=== PATIENT | female | born 2000 | race Caucasian/White ===

== ENCOUNTER 2023-02-03 13:49 | Outpatient (CLI) | payer OTHER, SELFPAY ==
[2023-02-03 19:12] LABS: Alanine Aminotransferase 32 U/L (6-35); Albumin Level 4.6 g/dL (3.5-5.1); Alkaline Phosphatase 61 U/L (38-126); Anion Gap 7 mmol/L (8-16); Aspartate Amino Transferase 37 U/L (14-36); Bilirubin,Total 0.6 mg/dL (0.2-1.3); Blood Urea Nitrogen 12 mg/dL (7-17); Calcium 9.5 mg/dL (8.4-10.2); Carbon Dioxide 28 mmol/L (22-30); Chloride 105 mmol/L (98-107); Cholesterol 148 mg/dL (0-200); Estimated Glomerular Filt Rate > 60; Glucose 77 mg/dL (65-110); HDL Direct 50 mg/dL; Potassium 4.3 mmol/L (3.4-5.0); Sodium 140 mmol/L (137-145); Triglycerides 81 mg/dL (<150)
[2023-02-03 19:23] LABS: Basophils Absolute Auto 0.1 K/mm3 (0.0-0.1); Basophils Percent Auto 0.7 % (0.2-1.2); Eosinophils Absolute Auto 0.2 K/mm3 (0-0.3); Eosinophils Percent Auto 2.3 % (0-4.4); Hematocrit 41.3 % (37.0-47.0); Hemoglobin 13.7 g/dL (12.0-15.0); Immature Granulocyte Absolute 0.01 K/mm3 (0.00-0.031); Immature Granulocyte Percent A 0.1 % (0-0.5); LDL Cholesterol Direct 80 mg/dL; Lymphocytes Absolute Auto 2.85 K/mm3 (0.9-3.2); Lymphocytes Percent Auto 41.3 % (18.3-44.2); Mean Corpuscular HGB Conc 33.2 g/dl (32-36); Mean Corpuscular Hemoglobin 30.2 pg (26-34); Mean Platelet Volume 9.6 fl (7.4-10.4); Monocytes Absolute Auto 0.5 K/mm3 (0.1-0.6); Monocytes Percent Auto 7.2 % (2.6-8.5); Neutrophils Absolute Auto 3.3 K/mm3 (1.3-6.7); Neutrophils Percent Auto 48.4 % (45.5-73.1); Platelet Count Result 367 k/mm3 (150-375); Red Blood Count 4.54 M/mm3 (4.2-5.4); Red Cell Distribution Width 12.6 % (11.5-14.5); White Blood Count 6.9 K/mm3 (4.5-10.0)
[2023-02-03 19:41] LABS: Thyroid Stimulating Hormone 0.849 uIU/mL (0.465-4.680)
== END 2023-02-03 13:50 | disposition home or self-care (01) ==
LOC: ANHGOSHLAB 13:51
PROVIDERS: PCP Internal Medicine; Visit Provider Nurse Practitioner
DX: R14.0 Abdominal distension (gaseous) (principal); Z13.220 Encounter for screening for lipoid disorders
CPT/HCPCS: 36415; 80053; 80061; 84443; 85025

== ENCOUNTER 2023-02-17 13:19 | Outpatient (CLI) | payer OTHER, SELFPAY ==
[2023-02-23 09:16] LABS: Immunoglobulin A 170 mg/dL (47-310); TTG IGA AB <1.0 U/mL (<15.0)
== END 2023-02-17 13:20 | disposition home or self-care (01) ==
LOC: ANHGOSHLAB 13:20
PROVIDERS: PCP Internal Medicine; Visit Provider Nurse Practitioner
DX: R14.0 Abdominal distension (gaseous) (principal)
CPT/HCPCS: 36415; 82784; 86364

== ENCOUNTER 2023-02-23 05:56 | Observation (INO) | payer OTHER, SELFPAY ==
[2023-02-23] VITALS (14 sets, daily range): BP systolic 119–161; BP diastolic 72–97; PULSE 72–120; RESP 11–18; TEMP 35.9–38.4; O2SAT 94–100; BMI 24.7
--- NOTE | ~2023-02-23 | CT_ITS ---
CT of the Abdomen and Pelvis: Indication: Abdominal pain Technique: 2.5 mm axial scans were obtained through the abdomen and pelvis following intravenous adm inistration of 100 cc of Omnipaque 350. Dose reduction technique was used on this scan by utilizing a utomated exposure control and iterative reconstruction technique. The dose-length product (DLP) was 2 77.49 mGy-cm. Findings: Scans through the lung bases are unremarkable. The liver, spleen, pancreas, gallbladder, adrenals and kidneys are within normal limits. No evidence of aortic aneurysm. No lymphadenopathy. No bowel obstruction or bowel wall thickening. Appendix is 8 mm in diameter with probable minimal per iappendiceal stranding.. Images through the pelvis were performed. Urinary bladder unremarkable. No adnexal mass seen. No asci emelyn. Impression: Findings which could reflect early acute appendicitis in the appropriate clinical setting. Correlate clinically. No abscess or free. Reviewed, dictated and finalized at [facility]. Impression: Findings which could reflect early acute appendicitis in the appropriate clinic al setting. Correlate clinically. No abscess or free.
--- NOTE | 2023-02-23 06:00 | ED.ABDPAIN ---
HPI - Abdominal Pain General Chief Complaint: Abdominal Pain <Penny Zimmerman MD - Last Filed: 02/23/23 07:20> Stated Complaint: abdominal pain <Penny Zimmerman MD - Last Filed: 02/23/23 07:20> Time Seen by Provider: 02/23/23 06:00 <Penny Zimmerman MD - Last Filed: 02/23/23 07:20> Source: patient <Penny Zimmerman MD - Last Filed: 02/23/23 07:20> Mode of arrival: ambulatory <Penny Zimmerman MD - Last Filed: 02/23/23 07:20> Limitations: no limitations <Penny Zimmerman MD - Last Filed: 02/23/23 07:20> History of Present Illness HPI narrative: Patient is a 22-year-old female with a history of asthma presenting to the emergency department for evaluation of abdominal pain. Patient reports abdominal pain that awaken her from sleep around 1 in the morning. Patient reports aching pressure in the lower abdomen greatest in the right lower quadrant. Patient denies fever, chills, nausea or vomiting. She denies flank pain. No dysuria, hematuria, vaginal bleeding or discharge. No radiation of pain to the flanks. Patient denies any abdominal distention. She reports mild constipation, last bowel movement 2 days ago. Last oral intake was 3:30 AM this morning, patient reports that she ate a banana. This did not exacerbate symptoms. She has not taken any medication to help with pain. She denies history of pain such as this in the past. <Penny Zimmerman MD - Last Filed: 02/23/23 07:20> Related Data Home Medications: Home Medications Medication Instructions Recorded Confirmed norgestrel 0.3 mg-ethinyl 1 tablet PO DAILY 02/03/23 02/03/23 estradiol 30 mcg tablet (Low-Ogestrel (28)) <Penny Zimmerman MD - Last Filed: 02/23/23 07:20> Allergies/Adverse Reactions: Allergies Allergy/AdvReac Type Severity Reaction Status Date / Time amoxicillin [From Augmentin] Allergy Unknown Unknown Verified 02/03/23 13:03 clavulanic acid Allergy Unknown Unknown Verified 02/03/23 13:03 [From Augmentin] <Penny Zimmerman MD - Last Filed: 02/23/23 07:20> Review of Systems Review of Systems: CONSTITUTIONAL: Denies fever, chills, or sweats. EYES: Denies visual changes, redness, or discharge. ENT: Denies rhinorrhea, congestion, sore throat, or otalgia. CARDIOVASCULAR: Denies chest pain, palpitations, or edema. RESPIRATORY: Denies cough or dyspnea. GASTROINTESTINAL: Reports lower abdominal pain without nausea, vomiting, or diarrhea. GENITOURINARY: Denies dysuria or hematuria. SKIN: Denies rash or itching. MUSCULOSKELETAL: Denies back pain, joint pain, or myalgia. NEUROLOGIC: Denies headache, numbness, or weakness. <Penny Zimmerman MD - Last Filed: 02/23/23 07:20> [facility] Past Medical History Medical History: Medical History Asthma <Penny Zimmerman MD - Last Filed: 02/23/23 07:20> Family History Family History: Family History (Updated 02/03/23 @ 13:06 by Gwen Lantigua [facility]) Father Alcoholism Hypertension Grandparent Thyroid disorder <Penny Zimmerman MD - Last Filed: 02/23/23 07:20> Social History Social History: Social History Smoking status: Never smoker Alcohol intake: never Substance use type: does not use Lack of Transportation: No Lack of Food: Never True Current Housing: I Have Housing Concerned About Future Housing: No Difficulty Paying Gas/Electric Bills: No Difficulty Paying for Meds: No Currently Unemployed: No Education: Bachelor's Degree Difficulty w/ Childcare or Family Care: No <Penny Zimmerman MD - Last Filed: 02/23/23 07:20> Exam Narrative: GENERAL: Awake, alert, conversant HEAD: Normocephalic, atraumatic. EYES: PERRLA and EOMI. ENT: Nares clear, no rhinorrhea or epistaxis. Mucous membranes moist. NECK: Supple. CHEST: No respiratory distress, breathing even and non labored
[2023-02-23 06:16] LABS: Basophils Absolute Auto 0.1 K/mm3 (0.0-0.1); Basophils Percent Auto 0.3 % (0.2-1.2); Eosinophils Absolute Auto 0.3 K/mm3 (0-0.3); Eosinophils Percent Auto 1.3 % (0-4.4); Hematocrit 40.6 % (37.0-47.0); Hemoglobin 13.8 g/dL (12.0-15.0); Immature Granulocyte Absolute 0.06 K/mm3 (0.00-0.031); Immature Granulocyte Percent A 0.3 % (0-0.5); Lymphocytes Absolute Auto 3.85 K/mm3 (0.9-3.2); Lymphocytes Percent Auto 20.7 % (18.3-44.2); Mean Corpuscular Hemoglobin 30.7 pg (26-34); Mean Corpuscular Volume 90.4 fl (80-100); Mean Platelet Volume 8.9 fl (7.4-10.4); Monocytes Percent Auto 5.3 % (2.6-8.5); Neutrophils Absolute Auto 13.4 K/mm3 (1.3-6.7); Neutrophils Percent Auto 72.1 % (45.5-73.1); Platelet Count Result 326 k/mm3 (150-375); Red Blood Count 4.49 M/mm3 (4.2-5.4); Red Cell Distribution Width 12.7 % (11.5-14.5); White Blood Count 18.6 K/mm3 (4.5-10.0)
[2023-02-23] MEDS: SODIUM CHLORIDE 0.9% IV 1,000 ML 999 ML IV CONT (06:22)
[2023-02-23 06:26] LABS: Alanine Aminotransferase 31 U/L (6-35); Albumin Level 4.4 g/dL (3.5-5.1); Alkaline Phosphatase 62 U/L (38-126); Anion Gap 8 mmol/L (8-16); Aspartate Amino Transferase 35 U/L (14-36); Bilirubin,Total 0.4 mg/dL (0.2-1.3); Blood Urea Nitrogen 10 mg/dL (7-17); Carbon Dioxide 22 mmol/L (22-30); Chloride 108 mmol/L (98-107); Estimated CRCL calculation 113 ml/min; Estimated Glomerular Filt Rate > 60; Glucose 93 mg/dL (65-110); Lipase 116 U/L (23-300); Sodium 138 mmol/L (137-145)
[2023-02-23 06:29] LABS: Appearance Urine Clear (Clear); Bilirubin Urine Negative (Negative); Blood Urine Negative (Negative); Color Urine Yellow (Yellow); Glucose Urine UA Negative (Negative); Ketones Urine Negative (Negative); Leukocyte Esterase Ur Negative LEU/UL (Negative); Nitrate Urine Negative (Negative); Protein Urine Negative (Negative); Specific Grav Ur 1.012 (1.001-1.035); Urobilinogen Urine 0.2 mg/dL (<2.0)
[2023-02-23 06:39] LABS: Add Urine Microscopic? NO
[2023-02-23] MEDS: PIPERACILLN/TAZ 3.375GM/NS50ML 3.375 GM/50 ML BAG IVPB ×2 (07:54→12:47)
--- NOTE | 2023-02-23 09:00 | ADMGEN ---
This patient, Herlinda Lew, was admitted to [facility] Surg Room 321-01. Patient/family oriented to hospital policies and general routines including ID bracelet, bed and alarms, visiting hours, pain management, procedures, bathroom and other care routines, personal items, smoking policy, room service/diet, and visiting hours. Information on how to activate the Rapid Response Team has been discussed. Patient/Family are encouraged to report perceived risks to care and to ask questions if they do not understand what they are told or what they should do.
[2023-02-23] MEDS: SODIUM CHLORIDE 0.9% IV 1,000 ML 125 ML IV CONT (10:55)
--- NOTE | 2023-02-23 11:36 | PM.IMHP ---
H&P: HPI History of Present Illness Date/Time: 02/23/23 11:36 Chief Complaint: Right lower quadrant abdominal pain. Narrative: Patient is a 22-year-old female who was otherwise healthy. She presented to the emergency room with a 6 to 8 hour history of sudden onset of lower abdominal pain which has localized right lower quadrant the abdomen. No nausea or vomiting. No diarrhea. Workup in the emergency room showed elevated white blood cell count [id number]. She has point tenderness the right lower quadrant the abdomen consistent with acute appendicitis clinically. CT scan abdomen pelvis was performed showing an 8mm dilated appendix with some subtle periappendiceal inflammation suggestive of early acute appendicitis. No abscess or perforation was noted. Review of Systems Review of Systems: The remainder of the review of systems to include constitutional, HEENT, cardiovascular, respiratory, GI, , integumentary, musculoskeletal, endocrine, immunologic, hematologic, psychiatric, and neurologic are all negative except for which is mentioned above in the HPI. [facility] Past Medical History Medical History Asthma Family History Family History Father Alcoholism Hypertension Grandparent Thyroid disorder Social History Social History Smoking status: Never smoker Alcohol intake: never Substance use type: does not use Lack of Transportation: No Lack of Food: Never True Current Housing: I Have Housing Concerned About Future Housing: No Difficulty Paying Gas/Electric Bills: No Difficulty Paying for Meds: No Currently Unemployed: No Education: Bachelor's Degree Difficulty w/ Childcare or Family Care: No Meds Home Medications and Allergies Home Medications Medication Instructions Recorded Confirmed Type norgestrel 0.3 mg-ethinyl 1 tablet PO DAILY 02/03/23 02/03/23 History estradiol 30 mcg tablet (Low-Ogestrel (28)) Allergies Allergy/AdvReac Type Severity Reaction Status Date / Time amoxicillin [From Augmentin] Allergy Unknown Unknown Verified 02/03/23 13:03 clavulanic acid Allergy Unknown Unknown Verified 02/03/23 13:03 [From Augmentin] Vital Signs Vital Signs - 24 hr 02/23/23 06:00 02/23/23 07:54 02/23/23 09:50 Temperature 36.9 C 37.1 C 36.1 C L Pulse Rate 86 80 72 Respiratory Rate 16 18 18 Blood Pressure 145/88 H 129/76 133/75 Pulse Oximetry 100 100 100 Oxygen Delivery Room Air Exam Const: General: comfortable and no acute distress HENMT: Face/Nose/Sinus: Normal nares present Mouth: Yes moist mucous membranes Eyes: General: appearance normal, both eyes and all related structures Sclera: sclerae normal Pupils: Equal, round and reactive pupils present Neck: Neck: supple and no JVD Resp: Effort & Inspection: normal respiratory effort Auscultation: clear to auscultation bilaterally Cardio: Rate: regular rate Rhythm: regular rhythm GI: Other: Abdomen soft and nondistended. No surgical scars. No ventral hernias. Mild point tenderness over McBurney's point the right lower quadrant was some mild guarding but no generalized rebound tenderness. No masses are appreciated. Neuro: Speech: normal speech Motor exam (neuro): 5/5 motor strength present throughout Sensory Exam: normal sensation Extrem: General: normal to inspection Psych: Mental Status: mental status grossly normal Affect: normal affect H&P: Results Labs Labs: Short CBC 02/23/23 Range/Units 06:09 WBC 18.6 H (4.5-10.0) K/mm3 Hgb 13.8 (12.0-15.0) g/dL Hct 40.6 (37.0-47.0) % Plt Count 326 (150-375) k/mm3 BMP 02/23/23 06:09 Sodium 138 Potassium 4.0 Chloride 108 H Carbon Dioxide 22 BUN 10 Creatinine 0.60 L Glucose 93 Calcium 9.0 Liver Function 02/23/23 Range/Units 06:09
[2023-02-23] MEDS: ACETAMINOPHEN 500 MG TABLET 1000 MG PO (11:50)
--- NOTE | 2023-02-23 11:55 | WPDHPUPDATE1 ---
History and Physical Update Update Date/Time: 02/23/23 11:55 History and Physical has been reviewed, including an updated exam of the patient. There are NO changes in the patient's condition. Risks, benefits, and alternatives have been discussed and questions answered. Patient agrees to proceed with procedure.
[2023-02-23] MEDS: LACTATED RINGERS 1,000 ML 30 ML IV CONT ×2 (14:20→16:46)
--- NOTE | 2023-02-23 14:37 | WPDANESEPPF ---
Anes - Initial Pre Proc Eval Procedure: Operation Date: 02/23/23 15:30 Proposed Procedures p Laparoscopic Appendectomy - Hosea Olmos MD Date/Time: 02/23/23 14:37 Surgeon: Hosea Olmos MD Pre Op Diagnosis: appendicitis Patient Data Age: 22 Gender: F Height: 1.65 m Weight: 67.6 kg Last Vital Signs Temp 36.1 C L 02/23/23 13:44 Pulse 84 02/23/23 13:44 Resp 16 02/23/23 13:44 BP 119/73 02/23/23 13:44 Pulse Ox 97 02/23/23 13:44 O2 Del Method Room Air 02/23/23 06:00 Allergies Allergy/AdvReac Type Severity Reaction Status Date / Time amoxicillin [From Augmentin] Allergy Unknown Unknown Verified 02/03/23 13:03 clavulanic acid Allergy Unknown Unknown Verified 02/03/23 13:03 [From Augmentin] Home Medications Medication Instructions Recorded Confirmed Type norgestrel 0.3 mg-ethinyl 1 tablet PO DAILY 02/03/23 02/23/23 History estradiol 30 mcg tablet (Low-Ogestrel (28)) Laboratory Tests 02/23/23 02/23/23 06:09 06:21 WBC 18.6 H K/mm3 (4.5-10.0) RBC 4.49 M/mm3 (4.2-5.4) Hgb 13.8 g/dL (12.0-15.0) Hct 40.6 % (37.0-47.0) MCV 90.4 fl (80-100) MCH 30.7 pg (26-34) MCHC 34.0 g/dl (32-36) RDW 12.7 % (11.5-14.5) Plt Count 326 k/mm3 (150-375) MPV 8.9 fl (7.4-10.4) Immature Gran % (Auto) 0.3 % (0-0.5) Neut % (Auto) 72.1 % (45.5-73.1) Lymph % (Auto) 20.7 % (18.3-44.2) [place] % (Auto) 5.3 % (2.6-8.5) Eos % (Auto) 1.3 % (0-4.4) Baso % (Auto) 0.3 % (0.2-1.2) Lymph # (Auto) 3.85 H K/mm3 (0.9-3.2) [place] # (Auto) 1.0 H K/mm3 (0.1-0.6) Eos # (Auto) 0.3 K/mm3 (0-0.3) Baso # (Auto) 0.1 K/mm3 (0.0-0.1) Abs Immat Gran (auto) 0.06 H K/mm3 (0.00-0.031) Absolute Neuts (auto) 13.4 H K/mm3 (1.3-6.7) Absolute Nucleated RBC 0.0 K/mm3 (0.0-0.012) Nucleated RBC % 0.0 % (0.0-0.2) Sodium 138 mmol/L (137-145) Potassium 4.0 mmol/L (3.4-5.0) Chloride 108 H mmol/L (98-107) Carbon Dioxide 22 mmol/L (22-30) Anion Gap 8 mmol/L (8-16) BUN 10 mg/dL (7-17) Creatinine 0.60 L mg/dL (0.7-1.0) Estim Creat Clear Calc 113 ml/min Estimated GFR > 60 (59 - ) Glucose 93 mg/dL (65-110) Calcium 9.0 mg/dL (8.4-10.2) Total Bilirubin 0.4 mg/dL (0.2-1.3) AST 35 U/L (14-36) ALT 31 U/L (6-35) Alkaline Phosphatase 62 U/L (38-126) Total Protein 8.0 g/dL (6.3-8.2) Albumin 4.4 g/dL (3.5-5.1) Lipase 116 U/L (23-300) Urine Color Yellow (Yellow) Urine Appearance Clear (Clear) Urine pH 6.0 (5.0-9.0) Ur Specific [place] 1.012 (1.001-1.035) Urine Protein Negative mg/dL (Negative) Urine Glucose (UA) Negative mg/dL (Negative) Urine Ketones Negative mg/dL (Negative) Ur Blood (Man) Negative (Negative) Urine Nitrate Negative (Negative) Urine Bilirubin Negative (Negative) Urine Urobilinogen 0.2 mg/dL (<2.0) Leukocyte Esterase Rfl Negative DEMETRIO/UL (Negative) Patient hx anesthesia problems: none Family hx anesthesia problems: none Results Review: All pre-operative results and documents have been reviewed as part of the pre-operative evaluation. [facility] Past Medical History Medical History Asthma Family History Family History Father Alcoholism Hypertension Grandparent Thyroid disorder Social History Social History Smoking status: Never smoker Alcohol intake: never Substance use: never Substance use type: does not use Lack of Transportation: YES Lack of Food: Never True Current H
[2023-02-23] MEDS: LIDO 1%/EPINEPHRINE 1:100,000 50 ML VIAL 20 ML INFILTRATE (16:13)
[2023-02-23] MEDS: KETOROLAC 15 MG/ML VIAL (*BKC) IV PUSH (16:20)
[2023-02-23] MEDS: fentaNYL CITRATE INJ (*CRX) 100 MCG/2 ML VIAL 25 MCG IV PUSH ×4 (16:51→17:05)
--- NOTE | 2023-02-23 16:54 | W.PM.PROC2 ---
Procedure Note - Detailed Date of Procedure 02/23/23 Pre-op Diagnosis Acute appendicitis Post-op Diagnosis Same Procedure Performed Laparoscopic appendectomy Surgeon Hosea Olmos MD Librarian Assistant KYLEIGH Magaña Anesthesia General Indications Patient is a 22-year-old white female presents to the emergency room with a nearly 12hour history of periumbilical abdominal pain which localized to right lower quadrant the abdomen. An elevated white blood count of 18,000. Clinical exam revealed point tenderness with some guarding in the right lower quadrant the abdomen over McBurney's point. CT scan abdomen pelvis was performed showing a dilated appendix to 8mm with some subtle periappendiceal inflammatory changes consistent with early acute appendicitis. Findings The appendix was inflamed to was distal 1/3. There was no perforation or gangrene. There is no periappendiceal abscess. The base of the appendix appeared normal. Description of Procedure After informed consent was obtained patient brought to the operating room where she was placed supine position and general endotracheal anesthesia was administered. A Arriaga catheter was placed decompress the bladder. The abdomen was then prepped and draped in usual sterile fashion. A time-out was then performed correctly identifying the patient as well as procedure to be performed. She was already on scheduled IV antibiotics. I then made a small periumbilical incision with a scalpel and then with traction upwards on the anterior abdominal wall the Veress needle was placed into the abdomen out difficulty per the abdomen is then insufflated to adequate pneumoperitoneum of 15mmHg of CO2. A 12mm Optiview port was then used to enter the abdomen the periumbilical trocar port site. Once inside the abdomen I then placed an additional 5mm suprapubic trocar port and another 5mm left lower quadrant trocar port. The appendix was easily seen in the right lower quadrant the abdomen. Laparoscopic grasper used to hold the appendix up and then I could see that the distal 1/3 the appendix was inflamed but there is no gangrene or perforation. The base of the appendix appeared to be normal. Then made a defect through the mesoappendix just at the base of the appendix with a [place] dissector and then divided the appendix at the base flush with the cecum with a 45mm Endo-KRISTEL stapler. A vascular reload to the laparoscopic stapler was then used to divide the mesoappendix. The appendix then placed into an Endo-Catch bag and brought out through the periumbilical trocar port site. It was passed off table sent to pathology for examination I then irrigated out the right lower quadrant the abdomen the staple lines sterile saline solution. Both staple lines were hemostatic. I then aspirated the fluid from the right lower quadrant the abdomen from the pelvis. Removed all the trocar ports under visualization all port sites appeared hemostatic. I then allowed the abdomen decompressed. The 12mm periumbilical trocar port fascial defect was then closed utilizing 0 Vicryl suture placed in a figure-eight fashion. The skin edges at all the port sites were then approximated utilizing a running subcuticular 4 Monocryl suture. Incisions were then cleaned the skin glue was applied. The patient tolerated the procedure well no complications. All sponges, needles, and instrument counts were correct at the end procedure. EBL was _5__cc. The patient was awakened and taken to recovery in stable and satisfactory condition. The Arriaga catheter was removed at the end the procedure. Implants None Estimated Blood Loss 5 Drains No Packing Yes Pathology Yes (Appendix to pathology) Complications No immediate complications Condition Stable Disposition PACU [facility] Billing Surgery - Charge Forward: Surgery Billing
[2023-02-23] MEDS: ALBUTEROL SULFATE NEB 2.5 MG/3 ML INH INHALATION (17:03)
[2023-02-23] MEDS: LACTATED RINGERS 1,000 ML 75 ML IV CONT (17:50)
[2023-02-23] MEDS: ACETAMINOPHEN/CODEINE (*CRX) 300/30 MG TABLET 1 TAB PO (17:51)
[2023-02-23] MEDS: MORPHINE SULFATE (*CRX) 4 MG/ML INJ IV PUSH (20:42)
[2023-02-23] MEDS: ONDANSETRON INJ 4 MG/2 ML VIAL IV PUSH (20:42)
[2023-02-24] VITALS: BP 116/52; PULSE 83; RESP 16; TEMP 37.6; O2SAT 99
[2023-02-24] MEDS: IBUPROFEN 600 MG TABLET PO (03:36)
[2023-02-24 04:00] VITALS: BP 121/60; PULSE 67; RESP 14; TEMP 37.5; O2SAT 99
--- NOTE | 2023-02-24 07:45 | WPDANESPN ---
Anes - Prog Note Post-Op Date/Time: 02/24/23 07:45 Cardiovascular status: normal Respiratory status: normal Airway patency: baseline Mental status: baseline Post-Op hydration status: normal Vital Signs: Last Vital Signs Temp 37.5 C 02/24/23 04:00 Pulse 67 02/24/23 04:00 Resp 14 02/24/23 04:00 BP 121/60 02/24/23 04:00 Pulse Ox 99 02/24/23 04:00 O2 Del Method Room Air 02/23/23 20:00 O2 Flow Rate 2 02/23/23 17:00 Pain Score (VAS): Patient asleep, no nonverbal signs of pain present at this time I/O: Intake & Output 02/23/23 02/23/23 02/24/23 15:59 23:59 07:59 Intake Total 100 800 90 Balance 100 800 90 Laboratory Tests 02/23/23 06:09 02/23/23 06:09 Post-procedural complaints: none Patient Feedback: Patient satisfied with anesthetic care.
[2023-02-24 08:40] VITALS: O2SAT 98
[2023-02-24] MEDS: ACETAMINOPHEN 500 MG TABLET 1000 MG PO (09:14)
[2023-02-24] MEDS: SODIUM CHLORIDE 0.9% IV 1,000 ML 125 ML IV CONT (09:17)
--- NOTE | 2023-02-24 10:57 | PM.PNGS ---
Progress Note: A&P Assessment and Plan (1) Acute appendicitis: Code(s): K35.80 - Unspecified acute appendicitis Status: Acute Assessment and Plan: Doing well postop day 1 after laparoscopic appendectomy. Solid food order for this morning she can tolerate that then I would plan on discharging her this afternoon. She can follow-up see me in my office in 2 weeks. No lifting more than 10 to 15 lb for the next 2 weeks. She may shower but not soak her incision under water for the next 2 weeks. No driving for a couple days up to a week depending on if she is taking any narcotic pain medications. Subjective Subjective Date/Time Seen: 02/24/23 10:57 Post Op day: 1 (Status post laparoscopic appendectomy.) Interval history: Patient is doing better today. She her pain is tolerable without use of narcotics. She is able to get up and ambulate to the bathroom. Tolerating clear liquids but has not tolerated a solid food diet yet. Sleeping when a came into the room and resting comfortably. No fever overnight. Exam GI: Other: Abdomen is soft and nondistended. Port sites are healing well without redness or drainage. Expected mild tenderness to palpation of the port sites. Right lower quadrant pain is resolved. Objective Data Vital Signs Vital Signs: Vital Signs - 24 hr 02/23/23 13:44 02/23/23 14:20 02/23/23 16:46 Temperature 36.1 C L 38.4 C H 37.5 C Pulse Rate 84 84 120 H Respiratory Rate 16 16 14 Blood Pressure 119/73 134/78 161/96 H Pulse Oximetry 97 98 97 Oxygen Delivery Room Air Nasal Cannula Oxygen Flow Rate 2 02/23/23 17:00 02/23/23 17:15 02/23/23 17:00 Temperature Pulse Rate 103 H 102 H Respiratory Rate 12 18 Blood Pressure 147/94 H 157/90 H Pulse Oximetry 100 97 98 Oxygen Delivery Nasal Cannula Room Air Nasal Cannula Oxygen Flow Rate 2 2 02/23/23 17:00 02/23/23 17:07 02/23/23 17:30 Temperature Pulse Rate 91 93 81 Respiratory Rate 15 11 L 14 Blood Pressure 150/90 H Pulse Oximetry 96 Oxygen Delivery Room Air Oxygen Flow Rate 02/23/23 17:45 02/23/23 18:00 02/23/23 18:30 Temperature 36.3 C L 36.2 C L 35.9 C L Pulse Rate 83 84 81 Respiratory Rate 16 18 16 Blood Pressure 150/93 H 143/97 H 130/84 Pulse Oximetry 94 98 98 Oxygen Delivery Oxygen Flow Rate 02/23/23 19:30 02/23/23 20:00 02/24/23 00:00 Temperature 36.6 C 37.6 C H Pulse Rate 98 83 Respiratory Rate 16 16 Blood Pressure 131/72 116/52 L Pulse Oximetry 99 99 Oxygen Delivery Room Air Oxygen Flow Rate 02/24/23 04:00 02/24/23 08:40 Temperature 37.5 C Pulse Rate 67 Respiratory Rate 14 Blood Pressure 121/60 Pulse Oximetry 99 98 Oxygen Delivery Room Air Oxygen Flow Rate Intake/Output Intake/Output: Intake & Output 02/21/23 02/22/23 02/23/23 02/24/23 23:59 23:59 23:59 23:59 Intake Total 2400 90 Balance 2400 90 Meds/Results Medications: Active Medications Generic Name Dose Route Start Last Admin Trade Name Freq PRN Reason Stop Dose Admin Acetaminophen 1,000 mg 02/23/23 16:42 02/24/23 09:14 Acetaminophen 500 Mg Tablet PO 1,000 mg Q6H PRN Administration Mild Pain (1-3) or Fever Acetaminophen/Codeine Phosphate 1 tab 02/23/23 17:33 02/23/23 17:51 Acetaminophen/Codeine (*Crx) 300/30 Mg Tablet PO 1 tab Q4H PRN Administration Pain Rated 4-6 Sodium Chloride 1,000 mls @ 125 mls/hr 02/23/23 08:05 02/24/23 09:17 Normal Saline Iv IV CONT 125 mls/hr .Q8H KHURRAM Administration Lactated Ringer's 1,000 mls @ 75 mls/hr 02/23/23 17:33 02/23/23 23:26 Lr - Lactated Ringers Iv IV CONT Not Given .[id number] KHURRAM Ibuprofen 600 mg 02/23/23 16:42 02/24/23 03:36 Ibuprofen 600 Mg Tablet PO 600 mg Q6H PRN Administration Cramping Miscellaneous Information 1 each 02/24/23 00:01 Med Rec Order Clarification XX 03/26/23 00:00 CLARIFY [facility] Morphine Sulfate 4 mg 02/23/23 08:02 02/23/23 20:42
--- NOTE | 2023-02-24 10:59 | PM.DS ---
DS: Admitting Diagnosis Discharge Date February 24, 2023 Admitting Diagnosis Acute appendicitis DS: Discharge Diagnosis Discharge Diagnosis (1) Acute appendicitis: Code(s): K35.80 - Unspecified acute appendicitis Status: Acute Assessment and Plan: Patient has done very well after her laparoscopic appendectomy. Will discharge her home today. Follow up the office in 2 weeks. DS: Summary Hospital Course Reason for hospitalization: Acute appendicitis Hospital Course: Patient came to the emergency room on February 23, 2023 complaining of right lower quadrant abdominal pain for about 12hours. Her workup showed elevated white blood cell count [id number] scan abdomen pelvis showed a dilated appendix at 8mm with some periappendiceal inflammatory changes suggestive of non perforated acute appendicitis. She was started on Zosyn for IV antibiotics and kept NPO. Later today she was then taken urgently to the operating room she underwent uncomplicated laparoscopic appendectomy. Postoperatively her course of the in the recovery room was punctuated by some wheezing and coughing for which she received a breathing treatment. Thatseem to settle her down and then she was transferred to the surgical floor for routine postoperative care. While on the surgical floor she did very well and remained afebrile. Pain was controlled well Able to ambulate to the bathroom and then the hallways. She tolerated clear liquids well and then was advanced to regular diet on postop day 1. Her incisions were inspected and there are healing well without any redness or drainage. Her right lower quadrant pain had resolved. She is being discharged home in improved condition. Status at Discharge Functional status at discharge: independent ambulation Overall status at discharge: patient is progressing back to baseline Time Spent with Patient Time attestation: Total time spent providing and/or coordinating discharge services: Time spent: Less than 30 minutes Exam Const: General: cooperative, healthy appearing and comfortable Resp: Effort & Inspection: normal respiratory effort Cardio: Rate: regular rate Rhythm: regular rhythm GI: Other: Abdomen soft and nondistended. Bowel sounds are noted. Port site incisions are healing well without redness or any drainage. Right lower quadrant tenderness has resolved. Neuro: General: patient oriented x3 Speech: normal speech Motor exam (neuro): 5/5 motor strength present throughout Sensory Exam: normal sensation Psych: Appearance: grossly normal and well kempt Affect: normal affect DS: Data Data Completed and Pending Pending studies at discharge: Pending at discharge 06/21/23 16:16 Surgical [PTH] Routine Discharge Plan Discharge Attending physician on discharge: Hosea Olmos Discharging Clinician: Hosea Olmos Patient Disposition: Home, Self-Care Activity: may shower Diet: regular Wound Care Instructions: remove dressing to shower Discharge Instructions: May discharge this evening hep patient tolerating solid food (at least crackers and liquids) and not needing any IV pain medications. Incisions need to be dry and patient able to ambulate in halls without difficulty. Patient needs to be afebrile. Patient is to refrain from lifting more than 10 or 15lb for the next 2 weeks. No driving for 3 days or if taking any narcotic pain medications. May shower in 24hours but do not soak the incisions under water for 14 days. Regular diet as tolerated home. May use [id number] Tylenol and alternate with ibuprofen if patient does not wish to use narcotic pain medications. Anesthesia used a medication called Sugammadex, female patients may need a second line of protection during sexual activity as this medication can limit control for 7 days following administration. Patient Instructions: Antibiotic Form Stand Alone Forms: General Discharge Information Follow-u
[2023-02-24 11:43] VITALS: BP 115/70; PULSE 70; RESP 16; TEMP 36.4; O2SAT 98
== END 2023-02-24 13:05 | disposition home or self-care (01) ==
LOC: ANHED 08:04 → ANH3MEDSUR 08:39
PROVIDERS: Emergency Medicine; Admitting Provider Surgery; Emergency Provider Emergency Medicine; PCP Internal Medicine; Visit Provider Surgery
PROC: 0DTJ4ZZ Resection of Appendix, Percutaneous Endoscopic Approach (ICD-10-PCS; CPT 44970; principal; 2023-02-23 15:30)
DX: K35.80 Unspecified acute appendicitis (principal); R10.30 Lower abdominal pain, unspecified; K59.00 Constipation, unspecified; D72.829 Elevated white blood cell count, unspecified; J45.909 Unspecified asthma, uncomplicated; Z79.3 Long term (current) use of hormonal contraceptives
CPT/HCPCS: 44970; 36415; 74177; 80053; 81003; 81025; 83690; 85025; 88304; 94640; 96365; 96367; 99285; A9270; G0378; G0379; J0131; J0330; J1100; J1885; J2250; J2270; J2405; J2543; J2704; J3010; J7030; J7120; Q9967

== ENCOUNTER 2024-04-25 14:48 | Emergency (ER) | payer OTHER, SELFPAY ==
[2024-04-25 14:56] VITALS: BP 129/89; PULSE 71; RESP 16; TEMP 36.7; O2SAT 98
--- NOTE | 2024-04-25 15:33 | ED.BACK ---
HPI - Back Pain/Injury General Chief Complaint: Back Pain/Injury Stated Complaint: BACK PAIN Source: patient Mode of arrival: ambulatory Limitations: no limitations History of Present Illness HPI Narrative: [age] year old female presented for complaint of mid lower back pain. Onset today. She states she felt mild back pain yesterday which resolved on its own. She denies known injury or overuse. States the pain briefly radiated into the right hip. Patient took naproxen today with minimal relief. Denies pain radiating into the legs, numbness, tingling, weakness of the lower extremities, or change in gait, saddle paresthesia or loss of bowel or bladder. Denies abdominal or urinary complaints. Related Data Allergies Allergy/AdvReac Type Severity Reaction Status Date / Time amoxicillin [From Augmentin] Allergy Unknown Verified 04/25/24 15:09 clavulanic acid Allergy Unknown Verified 04/25/24 15:09 [From Augmentin] Review of Systems Review of Systems: CONSTITUTIONAL: Denies body aches, fever, chills EYES: Denies visual changes CARDIOVASCULAR: Denies chest pain, palpitations, or edema. RESPIRATORY: Denies cough or dyspnea. GASTROINTESTINAL: Denies abdominal pain, nausea, vomiting, or diarrhea. SKIN: Denies rash, itching, or wounds. MUSCULOSKELETAL: reports back pain NEUROLOGIC: Denies headache, numbness, tingling, or weakness. All systems reviewed & are unremarkable except as noted in HPI and below PMFSH Past Medical History Medical History Acute appendicitis Asthma Encounter for surgical aftercare following surgery on the digestive system Healthy female Periappendicitis Surgical History Surgical History History of appendectomy No history of previous surgery Family History Family History Father Alcoholism Hypertension Grandparent Thyroid disorder Mother Breast cancer Social History Social History Smoking status: Never smoker Alcohol intake: never Substance use: never Substance use type: does not use Lack of Transportation: No Lack of Food: Never True Current Housing: I Have Housing Concerned About Future Housing: No Difficulty Paying Gas/Electric Bills: No Difficulty Paying for Meds: No Currently Unemployed: No Education: Bachelor's Degree Difficulty w/ Childcare or Family Care: No Spiritual care concerns: No Comments At time of signature, I have reviewed and agree with nursing past medical, surgical, social and family history unless otherwise noted. Please see nursing chart for further information. There is no relevant family history pertinent to the presenting complaint Exam Narrative: GENERAL: Well-appearing, and in no acute distress. CHEST: Speaks in full sentences. No respiratory distress. HEART: Regular rate and rhythm. Normal and equal peripheral pulses. MUSC: No Vertebral point tenderness, no lumbar paraspinal tenderness. BLEs with normal strength and sensation, normal range of motion denies pain with movement. No open wounds, or obvious deformity; alignment normal, pulse palpable and equal bilaterally, skin warm, dry, pink. Capillary refill less than 3 seconds. Gait steady. SKIN: Warm, dry, no rash. NEURO: Alert and oriented x3. Back/Spine/Pelvis: Back/spine/pelvis image: 1. area of reported pain Course Course Emergency Course: Patient is aware of diagnosis, understands and agrees to treatment plan. Anticipatory guidance given. Patient agrees to follow-up as directed and is aware of reasons to seek care at the emergency department. Portions of this record may have been created with voice recognition software Level of Care: Express Care Visit Vital Signs Vital signs: Vital Signs Temperature 98.1 F 0
== END 2024-04-25 15:45 | disposition home or self-care (01) ==
PROVIDERS: Emergency Provider Nurse Practitioner Family; PCP Internal Medicine
DX: S39.012A Strain of muscle, fascia and tendon of lower back, initial encounter (principal); X58.XXXA Exposure to other specified factors, initial encounter
CPT/HCPCS: 99213; G0463

== ENCOUNTER 2024-09-11 11:49 | Emergency (ER) | payer BC, SELFPAY ==
--- NOTE | ~2024-09-11 | CT_ITS ---
CLINICAL INDICATION: abdominal pain COMPARISON: 02/23/2023 . TECHNIQUE: Multiple contiguous axial images of the abdomen and pelvis were performed following the ad ministration of with 100 mL Omnipaque-350 intravenous contrast The dose-length product (DLP) was 460.21 mGy-cm. Automated exposure control and iterative reconstruction technique were employed. FINDINGS/OBSERVATIONS: Visualized lower thorax: The bilateral lung bases are clear. The heart is of normal size, without pericardial effusion. Small hiatal hernia is present. Liver: The liver enhances homogeneously and is not enlarged measuring 16cm in longitudinal dimension. Gallbladder and biliary system: The gallbladder is only minimally distended, and otherwise unremarkable. Pancreas: The pancreas enhances homogeneously without ductal dilatation. Spleen: The spleen enhances homogeneously and is not enlarged measuring 8 cm in longitudinal dimension. Kidneys: The bilateral kidneys enhance symmetrically without hydronephrosis or renal calculi. Adrenal glands: Unremarkable. Gastrointestinal tract: Mural thickening and edema with trace surrounding inflammatory change within the sigmoid colon (best seen on axial series, images 141 through 162) for which a focal enteritis is suspected. Appendix: The appendix is not definitively visualized. However, no pericecal inflammatory change is identified suggest the presence of acute appendicitis. Vasculature: Unremarkable. No aneurysmal dilatation or significant stenosis. Lymph nodes: No pathologically enlarged or morphologically suspicious lymph nodes within the retroperitoneum or at the root of the mesentery. Pelvic structures: The bladder is distended, and otherwise unremarkable. The uterus is retroverted and antral flexed and contains an intrauterine device. Body wall and musculoskeletal: Tiny fat-containing umbilical hernia. No significant degenerative disease within the lower thoracic or lumbosacral spine. IMPRESSION: Focal enteritis within the sigmoid colon, as detailed above. No additional abnormalities detected. Reviewed, dictated and finalized at location A. [employer]
--- NOTE | 2024-09-11 12:32 | PC.NURSE ---
No answer when called for triage.
[2024-09-11 12:41] VITALS: BP 138/91; PULSE 83; RESP 16; TEMP 36.4; O2SAT 97
--- NOTE | 2024-09-11 12:44 | ED.ABDPAIN ---
HPI - Abdominal Pain General Chief Complaint: Abdominal Pain Stated Complaint: abd pain nausea diarrhea Time Seen by Provider: 09/11/24 12:44 Focused HPI: This is a 24 year old female that presents to the ER for bloody diarrhea. Ongoing since yesterday. Reports associated abdominal pain. Denies fever, vomiting, dysuria. GENERAL: Well-appearing, well-nourished, and in no acute distress. HEAD: Normocephalic, atraumatic. CHEST: Clear to auscultation. ?No respiratory distress. HEART: Regular rate and rhythm.? NEURO: ?Alert and oriented x3. Patient screened in triage and initial orders placed.? ?Additional care and disposition to be based upon?diagnostic testing and treatment. Related Data Allergies Allergy/AdvReac Type Severity Reaction Status Date / Time amoxicillin (From Augmentin) Allergy Unknown Verified 06/20/24 14:30 clavulanic acid (From Allergy Unknown Verified 06/20/24 14:30 Augmentin) Review of Systems Review of Systems: CONSTITUTIONAL: Denies fever GASTROINTESTINAL: Reports abdominal pain, and diarrhea. All systems reviewed & are unremarkable except as noted in HPI and below PMFSH Past Medical History Medical History Acute appendicitis Asthma Encounter for surgical aftercare following surgery on the digestive system Healthy female Periappendicitis Surgical History Surgical History History of appendectomy No history of previous surgery Family History Family History Father Alcoholism Hypertension Grandparent Thyroid disorder Mother Breast cancer Social History Social History Smoking status: Never smoker Alcohol intake: never Substance use: never Substance use type: does not use Lack of Transportation: No Lack of Food: Never True Current Housing: I Have Housing Concerned About Future Housing: No Difficulty Paying Gas/Electric Bills: No Difficulty Paying for Meds: No Currently Unemployed: No Education: Bachelor's Degree Difficulty w/ Childcare or Family Care: No Spiritual care concerns: No Exam Narrative: GENERAL: Well-appearing, well-nourished, and in no acute distress. HEAD: Normocephalic, atraumatic. EYES: EOMI. CHEST: Clear to auscultation. No respiratory distress. No wheezes rales or rhonchi HEART: Regular rate and rhythm. No murmur heard. Normal peripheral pulses. ABDOMEN: Soft, nondistended, normal active bowel sounds. EXTREMITIES: Normal range of motion. No edema. SKIN: Warm, dry, no rash. NEURO: No focal deficits. Alert and oriented x3. PSYCH: Normal mood and affect Course Vital Signs Vital signs: Vital Signs Temperature 97.5 F L 09/11/24 12:41 Pulse Rate 83 09/11/24 12:41 Respiratory Rate 16 09/11/24 12:41 Blood Pressure 138/91 H 09/11/24 12:41 Pulse Oximetry 97 09/11/24 12:41 Oxygen Delivery Room Air 09/11/24 12:41 Temperature 97.5 F L 09/11/24 12:41 Pulse Rate 83 09/11/24 12:41 Respiratory Rate 16 09/11/24 12:41 Blood Pressure 138/91 H 09/11/24 12:41 Pulse Oximetry 97 09/11/24 12:41 Oxygen Delivery Room Air 09/11/24 12:41 MDM - Abdominal Pain MDM Narrative Medical decision making narrative: patient left after evaluation by myself and initial workup and before any further evaluation or management Lab Data 09/11/24 13:49 09/11/24 13:49 Labs: Lab Results 09/11/24 09/11/24 Range/Units 13:49 15:08 WBC 12.9 H (4.5-10.0) K/mm3 RBC 4.76 (4.2-5.4) M/mm3 Hgb 14.6 (12.0-15.0) g/dL Hct 43.4 (37.0-47.0) % MCV 91.2 (80-100) fl MCH 30.7 (26-34) pg MCHC 33.6 (32-36) g/dl RDW 12.0 (11.5-14.5) % Plt Count 378 H (150-375) k/mm3 MPV 9.0 (7.4-10.4) fl Immature Gran % (Auto) 0.3 (0-0.5) % Neut % (Auto) 72.0 (45.5-73.1) % Lymph % (Auto) 19.7 (18.3-44.2) % [place] % (Auto) 6.4 (2.6-8.5) % Eos % (Auto) 1.1 (0-4.4) % Baso % (Auto) 0.5 (0.2-1.2) % Lymph # (Auto) 2.55 (0.9-3.2) K/mm3 [place] # (Auto) 0.8 H (0.1-0.6) K/mm3 Eos # (Auto) 0.1 (0-0.3) K/mm3 Baso # (Auto) 0.1 (0.0-0.1) K/mm3 Abs Immat Gran (auto) 0.04 H (0.00-0.031) K/mm3 Absolute Neuts (auto) 9.3 H (1.3-6.7) K/mm3 Absolute Nucleated RBC 0.000 (0.0-0.012) K/mm3 Nucleated RBC % 0.0 (0.0-0.2) % PT 12.5 (11.1-14.7) Seconds INR 0.9 APTT 27.0 (22.3-36.8) Seconds Sodium 140 (137-145) mmol/L Potassium 3.9 (3.4-5.0) mmol/L Chloride 104 (98-107) mmol/L Carbon Dioxide 26 (22-30) mmol/L Anion Gap 10 (4-12) mmol/L BUN 10 (7-17) mg/dL Creatinine 0.60 L (0.7-1.0) mg/dL Estim Creat Clear Calc 130 ml/min Estimated GFR > 60 (59 - ) Glucose 90 (65-110) mg/dL Calcium 9.4 (8.4-10.2) mg/dL Total Bilirubin 0.7 (0.2-1.3) mg/dL AST 27 (14-36) U/L ALT 21 (6-35) U/L Alkaline Phosphatase 80 (38-126) U/L Total Protein 8.0 (6.3-8.2) g/dL Albumin 5.0 (3.5-5.1) g/dL Lipase 131 (23-300) U/L POC Urine HCG, Qual Negative (Negative) Discharge Plan Discharge Clinical Impression: Bloody diarrhea [facility] Se[facility] by Prov Condition: Guarded Prognosis Instructions: Antibiotic Form Patient Language: Greek Prescriptions: No Action naproxen 250 mg tablet 250 mg PO BID PRN (Reason: pain) Qty: 20 1RF venlafaxine 150 mg capsule,extended release 24hr 150 mg PO DAILY Qty: 90 0RF Follow-up/Referrals: Refugio Jackson DO [Primary Care Provider] -
[2024-09-11 13:55] LABS: Basophils Absolute Auto 0.1 K/mm3 (0.0-0.1); Basophils Percent Auto 0.5 % (0.2-1.2); Eosinophils Absolute Auto 0.1 K/mm3 (0-0.3); Eosinophils Percent Auto 1.1 % (0-4.4); Hematocrit 43.4 % (37.0-47.0); Hemoglobin 14.6 g/dL (12.0-15.0); Immature Granulocyte Absolute 0.04 K/mm3 (0.00-0.031); Immature Granulocyte Percent A 0.3 % (0-0.5); Lymphocytes Absolute Auto 2.55 K/mm3 (0.9-3.2); Lymphocytes Percent Auto 19.7 % (18.3-44.2); Mean Corpuscular HGB Conc 33.6 g/dl (32-36); Mean Corpuscular Hemoglobin 30.7 pg (26-34); Mean Corpuscular Volume 91.2 fl (80-100); Monocytes Absolute Auto 0.8 K/mm3 (0.1-0.6); Monocytes Percent Auto 6.4 % (2.6-8.5); Neutrophils Absolute Auto 9.3 K/mm3 (1.3-6.7); Platelet Count Result 378 k/mm3 (150-375); Red Blood Count 4.76 M/mm3 (4.2-5.4); White Blood Count 12.9 K/mm3 (4.5-10.0)
[2024-09-11 14:15] LABS: INR 0.9; Prothrombin Time 12.5 Seconds (11.1-14.7)
[2024-09-11 14:51] LABS: Alanine Aminotransferase 21 U/L (6-35); Alkaline Phosphatase 80 U/L (38-126); Anion Gap 10 mmol/L (4-12); Aspartate Amino Transferase 27 U/L (14-36); Bilirubin,Total 0.7 mg/dL (0.2-1.3); Blood Urea Nitrogen 10 mg/dL (7-17); Calcium 9.4 mg/dL (8.4-10.2); Carbon Dioxide 26 mmol/L (22-30); Chloride 104 mmol/L (98-107); Estimated CRCL calculation 130 ml/min; Estimated Glomerular Filt Rate > 60; Glucose 90 mg/dL (65-110); Lipase 131 U/L (23-300); Potassium 3.9 mmol/L (3.4-5.0); Sodium 140 mmol/L (137-145)
[2024-09-11 15:10] LABS: BEDSIDEPREGUCG Negative (Negative)
--- OUTSIDE RECORDS SUMMARY | 2024-09-18 14:17 | XMS_ITS | Data Portability ---
Author Organization [facility] Address [address] [place] [address] [address] [place] [address] Assessment Encounter Date Assessment Date Assessment LastModified by Organization Details LastModified Time 06/23/2023 06/23/2023 Annual gynecological exam performed. Patient will come back in a year unless there are new symptoms. [email or web address] Not available 06/23/2023 12:28:42 Plan of Treatment Reminders Order Date Submit Date Provider Last Modified By Organization Details Last Modified Time Details Appointments None recorded. Lab test, urine 2022 023 [facility], [facility] [address], [address], [place], [address], 3 16:32:29 Referral None recorded. Procedures None recorded. Surgeries None recorded. Imaging None recorded. Medication Orders Twirla 120 mcg-30 mcg/24 hr transdermal patch 2022 023 [facility] [employer] #[id number], [address] [place], [place], [id number], 3 12:25:19 ParaGard T 380A 380 square mm intrauterin e device 2022 023 [facility] [employer] #[id number], [address], [place], [id number], 3 16:32:29 Patient TargetsNo targets recorded. Patient Instructions Encounter Date Encounter Id Patient Instructions Last Modified By Organization Details Last Modified Time 05/24/2023 [id number] surgical trays* vschroedter Not availab le 06/21/2023 09:05:23 Reason for Referral None Reported. Results Created Date Observation Date Name Description Value Unit Range Abnormal Flag Note LastModifiedBy Organization Detail LastModifiedTime 05/24/2005/24/2023 pregn boby test, urine HCG negati ve Not Available [facility], [place], [address], 05/24/2023 16:13:24 06/23/2006/23/2023 IMAGE GUIDE D PAP, REFLE X HPV IF ASCUS ONLY image guided Pap, reflex HPV ASCUS only SEE RESULT S BELOW CASE REPOR T: Cytol ogy Gynec ologi ren Repor t Case: [id number] Autho shaynedinh jerome Provi bernie: Azalia Calderon, RUTH Molina cted: 06/23 1403 Order ing Locat ion: [place] Patho log[facility] Recei laisha: 06/24 0720 First Scree n: Georgie Lee ret, CT Rescr een: Cheyenne Hernandez , CT Speci men: Scree froy Pap - Image d, Cervi x STATE MENT OF ADEQU ACY: Satis facto ry for evalu ation Trans forma tion zone compo nent prese nt FINAL DIAGN OSIS: Negat sachin for Intra epith elial Lesio n or Bartolome newman (NIL) . Elect tracey nguyen d by Cheyenne Hernandez , CT on 06/28 at 3:17 PM ----- ----- ----- ----- ----- ----- ----- ----- ----- ----- ----- ----- ----- ----- ----- ----- ----- ---- COMME NT: This speci men was revie wed by a Cytot echno logis t and/o r Patho logis t (as indic ated in this repor t) after evalu ation using the Thinp rep Imagi ng Syste m. CLINI REN INFOR MATIO N: Menst rual Statu s: LMP (if appli cable ): Clini ren Histo ry/Pr eviou s Pap: Type of Neopl reva (if appli cable ): Signi fican t Clini ren Findi ngs: Other Histo ry: Hormo aspen (if appli cable ): PAP EDUCA MALISSA L NOTE: The Pap Test is a scree froy test with an inher ent false negat sachin rate. Liqui d-bas ed sampl ing may decre ase, but will not elimi natalya, false negat sachin resul ts. A negat sachin resul t does not precl ude the prese nce and/o r devel opmen t of disea se, since the prese nce of abnor mal cells in the sampl e depen ds on the locat ion of the lesio n and sampl ing techn ique. Erickson nued regul ar scree froy is the best metho d of cance r preve ntion . If repor kassi cytol ogic findi ng do not corre late with physi ren and/o r histo rical findi ngs, furth er inves tigat ion is recom alvaro d, as clini ese santos nted. Not Available [facility] (Lab) [address], [place], [address], 06/28/2023 16:20:36 Result Notes None recorded. Procedures Surgical History Date Name Laterality Status Provider Name and Address Organization Details Recorded Time 06/23/20 23 Date of Last Pap Smear completed Becky Rodriguez [facility] 06/23/2023 12:52:18 05/24/20 23 IUD Insertion completed NEMO Sánchez [address], [place], [address], [facility] 05/24/2023 16:12:40 02/05/20 23 Appendectomy completed Becky Rodriguez [facility] 06/23/2023 12:30:31 11/04/19 02 procedure on ear completed Becky Rodriguez [facility] 06/23/2023 12:30:52 Imaging Results None recorded. Procedure Notes None recorded. Medical Equipment None Reported. Allergies Allergen ID Allergen Name Allergen Category Reaction Reaction Severity Criticality Documentation Date Start Date Code Code System Note Provider Name and Address Organization Details Recorded Time 39789 Augmentin medicatio n diarrhea Not available Not available 03/18/2023 96781 2 RxNorm [facility] 11:53:25 Medications Name Sig Start Date Stop Date Status Note LastModified by Organization Details LastModified Time cyclobenzap rine 10 mg tablet TAKE 1 TABLET BY MOUTH THREE TIMES DAILY NEEDED FOR MUSCLE SPASM active Not Available Not Available No t Available naproxen 250 mg tablet TAKE 1 TABLET BY MOUTH TWICE DAILY NEEDED FOR PAIN active Not Available Not Available No t Available venlafaxine ER 150 mg capsule,ext ended release 24 hr TAKE 1 CAPSULE BY MOUTH DAILY active Not Available Not Available No t Available sertraline 25 mg tablet TAKE 1 TABLET BY MOUTH DAILY 05/17 completed Not Available Not Available Not Available Low-Ogestre l (28) 0.3 mg-30 mcg tablet Take 1 tablet every day by oral route. 03/18 completed Not Available Not Available Not Available methylpredn isolone 4 mg tablets in a dose pack FOLLOW PACKAGE DIRECTION S active Not Available Not Available No t Available sertraline 50 mg tablet TAKE 1 TABLET BY MOUTH EVERY DAY AFTER COMPLETIN G 25 MG 06/23 completed Not Available Not Available Not Available ParaGard T 380A 380 square mm intrauterin e device Take 1 device by intrauter ine route. 2022 active Not Available Not Available Not Avai lable venlafaxine ER 75 mg tablet,exte nded release 24 hr TAKE 1 TABLET BY MOUTH EVERY EVENING active Not Available Not Available No t Available Twirla 120 mcg-30 mcg/24 hr transdermal patch Apply 1 patch every week by transderm al route for 21 days. 06/23 completed Not Available Not Available Not Available Vitals Date Recorded Body height Body mass index (BMI) Body weight Provider Name and Address Organization Details Last Updated DateTime 03/18/2023 165.1 cm 24.8 kg/m2 86504.54 g Penny Benjamin [facility] 03/18/2023 11:53:16 Date Recorded Systolic blood pressure Diastolic blood pressure Provider Name and Address Organization Details Last Updated DateTime 03/18/2023 116 mm[Hg] 76 mm[Hg] Magdalena Matta [facility] [address], [place], [address], [facility] 03/18/2023 12:10:52 Date Recorded Body height Body mass index (BMI) Body weight Provider Name and Address Organization Details Last Updated DateTime 05/17/2023 165.1 cm 25.6 kg/m2 96366.22 g Edith Olivares [facility] 05/17/2023 15:24:57 Date Recorded Systolic blood pressure Diastolic blood pressure Provider Name and Address Organization Details Last Updated DateTime 05/17/2023 122 mm[Hg] 78 mm[Hg] Magdalena Matta, [facility] [address], [place], [address], [facility] 05/17/2023 15:39:44 Date Recorded Body height Body mass index (BMI) Body weight Systolic blood pressure Diastolic blood pressure Provider Name and Address Organization Details Last Updated DateTime 05/24/2023 165.1 cm 25.6 kg/m2 11409.22 g 139 mm[Hg] 88 mm[Hg] Bella Alba [facility] 15:38:49 Date Recorded Body height Body mass index (BMI) Body weight Systolic blood pressure Diastolic blood pressure Provider Name and Address Organization Details Last Updated DateTime 06/23/2023 165.1 cm 27 kg/m2 85309.96 g 128 mm[Hg] 85 mm[Hg] Becky Rodriguez [facility] 12:29:23 Social History Question Answer Notes LastModified by Organizat ion Details LastModified Time Tobacco Smoking Status Never Smoker Magdalena Matta [facility] [address], [place], [address], [facility] 03/18/2023 12:13:25 What Is Your Level Of Alcohol Consumption? Occasional Information not available 03/18/2023 Are You Blind Or Do You Have Difficulty Seeing? No Information not available 03/18/2023 What Is Your Level Of Caffeine Consumption? Heavy Information not available 03/18/2023 In The 14 Days Before Symptom Onset, Have You Had Close Contact With A Laboratory-confir med COVID-19 While That Case Was Ill? No Information not available 03/18/2023 In The 14 Days Before Symptom Onset, Have You Had Close Contact With A Person Who Is Under Investigation For COVID-19 While That Person Was Ill? No Information not available 03/18/2023 Have You Been To An Area Known To Be High Risk For COVID-19? No Information not available 03/18/2023 Are You Currently Employed? Yes Information not available 03/18/2023 Are You Deaf Or Do You Have Serious Difficulty Hearing? No Information not available 03/18/2023 What Type Of Diet Are You Following? REGULAR Information not available 03/18/2023 What Is The Highest Grade Or Level Of School You Have Completed Or The Highest Degree You Have Received? 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 No Information not available 03/18/2023 Do You Use Protection During Sex? Usually Information not available 03/18/2023 Do You Use Your Seat Belt Or Car Seat Routinely? Yes Information not available 03/18/2023 Are You Sexually Active? Yes Information not available 03/18/2023 Do You Have Smoke And Carbon Monoxide Detectors In Your Home? Yes Information not available 03/18/2023 How Much Tobacco Do You Smoke? No Information not available 03/18/2023 Do You Feel Stressed (tense, Restless, Nervous, Or Anxious, Or Unable To Sleep At Night)? [id number] Information not available 03/18/2023 Do You Use Any Illicit Or Recreational Drugs? No Information not available 03/18/2023 Do You Use Sunscreen Routinely? No Information not available 03/18/2023 Have You Used IV Drugs? No Information not available 03/18/2023 Sex: Unknown Functional Status Question Answer Note LastModified by Organizat ion Details LastModified Time Do you have difficulty walking or climbing stairs? No [email or web address] Information not available 06/23/2023 Are you able to walk? YESWOREST Information not available 03/18/2023 Are you able to care for yourself? Yes Information not available 06/23/2023 Do you have difficulty dressing or bathing? No [email or web address] Information not available 06/23/2023 What is your exercise level? Moderate Information not available 03/18/2023 Mental Status None recorded. Family History Relationship Description Onset Age of this Age Resolved Age Notes LastModified by Organization Details LastModified Time Paternal Grandmother Anxiety disorder Not available 2022 11:53:28 Mother Substance abuse Not available 2022 11:53:28 Maternal Aunt Anxiety disorder Not available 2022 11:53:28 Maternal Grandmother Disorder of thyroid gland Not available 2022 11:53:28 Sister Anxiety disorder Not available 2022 11:53:28 Medical History Condition Response Allergies (Food, seasonal, environmental ) Y Other N Breast Cancer N Drug/Latex Allergies/Reactions Y Blood Transfusion N Dermatologic Disorders N Lung Disease N Defects or Inherited Disease N Breast Problem N Gestational Diabetes N Hematologic disorders N Anesthesia Complications N History of STI N Deep Vein Thrombosis N Polycystic ovary syndrome N Anxiety Disorder Y Autoimmune disease N Arthritis N Infertility N Polyps N Acid Reflux (GERD) N History of abnormal pap N Cancer N Stroke N Varicosities N Neurologic/Epilepsy N Endometriosis N High Cholesterol N Headaches Y Fibromyalgia N Kidney Disease N Heart Problems N Kidney or Bladder Problems N Thyroid Problems N GI Problems N Eating Disorder N Anemia N Art (IVF or FET) N Psychiatric Illness N Ovarian Cancer N Diabetes N Pulmonary (TB, Asthma) N Hepatitis/Liver Disease N No Past Medical History N Eczema Y Urinary Tract Infection N Abuse/Domestic Violence N Asthma Y Trauma/Violence N Depression/ depression Y Heart Disease N Pre-Eclampsia N Hypertension N Osteoporosis N Thrombophilias N Gynecological History Statement/Question Response Date of Last Mammogram Flow Moderate Date of LMP 06/09/2023 On BCP's at Conception? N N Was last menstrual period normal N STIs/STDs N HPV Vaccine N Duration of Flow (days) 4 Current Control Method IUD Frequency of Cycle (Q days) 23 Sexually Active? N Menses Monthly Y Date of DEXA bone scan Age of first menstrual cycle 13 Date of Last Pap Smear 06/23/2023 Sexual Problems? Y Desired Control Method IUD LMP Approximate N Obstetrics History GPAL:G 0 P 0 0 0 0 Past Encounters Encounter ID Performer Location Encounter Start Date Encounter Closed Date Diagnosis/Indication Diagnosis SNOMED-CT Code Diagnosis ICD10 Code Diagnosis Note [id number] Magdalena Matta [facility] [address] [address] 03/18/2023 11:19:42 03/21/2023 15:52:07 Contraception care management 243689149 Z30.9 Discussed all control options in great detail. Pt would like to start TWirla patch. She is aware of the risks and benefits. Informed her it may not be as effective for contracept ion since her weight is over 198 lbs. She does not have any medical condition that is contraindi cated with the use of estrogen containing control. Pt will place the patch on the first tuesday following the start of her period and then replace weekly x 2 (total of 3 patches over 3 weeks) and week 4 no patch. She is aware it is not effective for control the first month and may be less effective d/t her weight. She is also aware that she will need to check placement daily to ensure it has not come off. Encouraged use of condoms as the nuvaring does not protect against STD's. Will return in 3 months for med check. Consent was read and signed. Pt verbalized understand ing. Will need STD screen/Pap since is 22yo moving forward. Time spent in visit is a total of 30 mins with at least 50% of visit consisting of counseling and review of plan of care. [id number] Magdalena Matta [facility] [address] [address] 05/17/2023 15:19:22 05/17/2023 15:44:06 Contraception care management 157739033 Z30.9 Here for medication check of Twirla.She has decided that she does not like Twirla.Pat ch caused some skin irritation /and even fell off once.She would like to consider IUD paraguard. Will consider & contact us with appt for placement if wants to pursue. Discussed all control options and pt would like mirena IUD. I have discussed in detail all risks and benefits including risk of infection and perforatio n. She understand s she will need to contact office with next menses. Aware of need to verify with insurance device coverage. Literature given. All questions answered to patient satisfacti on. Will make appt for WWE with pap/std screen & then decide on IUD. Time spent in visit is a total of 30 mins with at least 50% of visit consisting of counseling and review of plan of care. [id number] NEMO Sánchez [facility] [address] [address] 05/24/2023 15:11:46 05/24/2023 16:37:34 Insertion of intrauterine contraceptive device [id number] Z30.430 She has been counseled on all of the r/b/a of placement of an intrauteri ne device that include but are not limited to uterine perforatio n, injury to cervix, vagina, bladder, and bowel.Risk s of bleeding due to injury or increased irregular bleeding due to progestin effect of the device. Risks of infection would be increased within the first 21 days of placement with concommita nt cervicitis . She understand s that the device will need to be removed in this instance due to increased risk of Pelvic inflammato ry disease. Patient is aware she is at higher risk for STD and if contracted she could lose her fertility. Pt is aware that if occurs that she should contact office immediatel y to rule out ectopic which could be life threatenin g. IUD will also need to be removed and this could cause miscarriag e. Patient also informed that in the event her strings are absent or embedded at the time of removal she may need to have the IUD surgically removed. She was informed of the above and properly consented. IUD placed w/o complicati on. Patient should return to office after next period to check for string placement. Patient to expect irregular bleeding but should be seen in the ED if bleeding increases to soaking a pad an hour for at least 2 hours. She verbalized understand ing.IUD inserted (see procedure note)gc/ct /trich testing sentRTC for string check in 4-6 weeks Time spent in visit is a total of 30 mins with at least 50% of visit consisting of counseling and review of plan of care. Venereal d isease screening 835972100 Z11.3 Contracept ion care management [id number] Z30.9 [id number] NEMO Sánchez [facility] [address] [address] 06/23/2023 12:17:19 06/23/2023 14:07:42 Gynecologic examination 51169656 Z01.419 Z11.3 Z11.8 [employer] - ParaGuard( +) IUD strings noted on examhappy with IUD and would like to continue this methodprim jon pap collectedS TI testing declinedIn formation given on HPV vaccineRTC in 1 yr or sooner if needed Take Calcium with Vitamin D3 daily if not receiving in daily diet.It is strongly advised to have an annual flu shot and up can obtain at most pharmacies . If you have not had a TDap shot in the last 10 years you should obtain one as well.Discu ssed with patient & provided with informatio n regarding Gardisil vaccine to prevent the 4 strains for HPV that cause cervical cancer if under age 26.Encoura ge safe sexual practices, to use condoms and limit partners if not already in a monogamous relationsh ip.Do monthly self breast exams.Enga ge in daily exercise of low impact aerobic exercise 45-60 minutes 4-5 times weekly. Avoid tobacco and illicit drugs as well as using moderation with alcohol intake less than 1-2 8 oz beverages daily. This lifestyle behavior pattern will lead to less health conditions and longer life span. If BMI greater than 25 weight watchers or dietary consult advised.Rickie navas received above instructio ns, and questions have been answered. If you have any questions please call or respond to this email. Patient was made aware of the patient portal and may obtain a paper copy of today's plan if desired. IUD check [id number] Z30. 431 Health Concerns Section Related Observation LastModified by Organization Detai ls LastModified Time None Recorded Concern Status LastModified by Organization Details LastModified Time None Recorded Advance Directives Directive None Recorded Payers Encounter Date Sequence Insurance Name Policy Number Policy Ureña Covered Member ID Ureña Member ID Guarantor Name 03/18/2023 1 [facility] ON OR AFTER 03/05/21 (MEDICAID REPLACEMENT - HMO) Herlinda Lew [id number] Herlinda Lew 05/17/2023 1 [facility] - [facility] ON OR AFTER 21 (MEDICAID REPLACEMENT - HMO) Herlinda Lew [id number] Herlinda Lew 05/24/2023 1 [facility] ON OR AFTER 03/05/21 (MEDICAID REPLACEMENT - HMO) Herlinda Lew [id number] Herlinda Lew 06/23/2023 1 [facility] ON OR AFTER 03/05/21 (MEDICAID REPLACEMENT - HMO) Herlinda Lew [id number] Herlinda Lew Notes Date Note Type Note Provider Name and Address Organization Details Recorded Time 03/18/2023 text/html Here today for control consult.Current BC has decreased her libido & feels it might have increased her anxiety. Health Hx was reviewed and updated as reported in chart. NEMO Flores- [address], [place], [address], [facility] 04/04/2023 19:44:45 05/17/2023 text/html Here today for medication check.Has decided she would like to discuss paraguard IUD today. NEMO Flores- [address], [place], [address], [facility] 05/17/2023 15:43:02 05/24/2023 text/html Patient presents for IUD insertion.currently on her perioddesires ParaGuard IUDUPT (-) NEMO Sánchez [address], [place], [address], [facility] 05/24/2023 16:34:08 06/23/2023 text/html Annual GYNReport ed bypatient.Menstrual cycle:Normal menses Urinary symptoms:No hematuria; No incontinence Vulva:No genital lesion Vagina:Normal vaginal discharge Breast:No breast pain; No breast lump; No nipple discharge Current Contraception:Satis fied with current contraception; Intrauterine device (iud); paraguard IUD, inserted 05/24/23 happy with IUD Sexual complaints:No sexual complaints; No pain during intercourse; Normal libido Menopausal Symptoms:No menopausal symptoms; Normal vaginal lubrication Psychological symptoms:No depression; No anxiety; No PMDD Preventive measures:Encourage self breast examination; Encourage regular exercise; Encourage no tobacco use; Encourage regular mammograms starting age 40 Patient presents for IUD insertion. NEMO Sánchez [address], [place], [address], [facility] 06/23/2023 13:54:17 OBGyn Episode No OBEpisode recorded.
== END 2024-09-11 16:18 | disposition left against medical advice (07) ==
PROVIDERS: Emergency Provider Physician Assistant; PCP Internal Medicine
DX: K92.1 Melena (principal); R19.7 Diarrhea, unspecified; J45.909 Unspecified asthma, uncomplicated
CPT/HCPCS: 36415; 74177; 80053; 81025; 83690; 85025; 85610; 85730; 99284; Q9967